=== PATIENT | male | born 1985 | race Caucasian/White ===

== ENCOUNTER 2016-09-12 03:04 | Emergency (ER) | payer SELFPAY ==
[2016-09-12 04:32] VITALS: BP 127/84
== END 2016-09-12 04:33 | disposition home or self-care (01) ==
LOC: ED 03:04
DX: F41.9 Anxiety disorder, unspecified (principal); R03.0 Elevated blood-pressure reading, without diagnosis of hypertension

== ENCOUNTER 2016-09-23 10:04 | Emergency (ER) | payer MEDICAID ==
[2016-09-23 11:50] VITALS: BP 109/65
== END 2016-09-23 11:50 | disposition home or self-care (01) ==
LOC: ED 10:04
DX: K21.9 Gastro-esophageal reflux disease without esophagitis (principal)

== ENCOUNTER 2016-10-03 16:04 | Inpatient (IN) | payer MEDICAID ==
[~2016-10-03] VITALS: Ht 167.6 cm; Wt 64.5 kg
--- NOTE | 2016-10-03 16:22 | NUR ---
PT C/O SOB AND LEFT RIB PAIN THAT BEGAN TWO DAYS AGO. PT STATES HE WAS SLEEPING IN THE FAMILY ROOM ON A COUCH DUE TO HIS GERD DX BUT RECENTLY HAD TO SLEEP IN A BED. PT STATES HE HAS NOT BEEN SLEEPING IN THE CORRECT POSITION (HOB AT 45 DEGREES) AND BELIEVES THAT MIGHT BE THE CAUSE FOR HIS PAIN AND SOB. PT IS IN SITTING UP IN BED, NO DISTRESS NOTED THIS TIME. PT WAITING TO BE SEEN BY ER MD.
--- NOTE | 2016-10-03 16:51 | NUR ---
PT PICKED UP TO BE TAKEN FOR X-RAYS.
--- NOTE | 2016-10-03 18:20 | NUR ---
MSE COMPLETED BY DR AVILES.
--- NOTE | 2016-10-03 18:20 | NUR ---
INFORMATION SERVICES CONSULTANT AT BEDSIDE.
--- NOTE | 2016-10-03 18:25 | NUR ---
EKG IN PROGRESS BY EMT.
[2016-10-03 18:38] LABS: microscopic required? NO
[2016-10-03 18:43] LABS: CALCIUM 9.6 mg/dL (8.5-10.1); CARBON DIOXIDE 27.4 mmol/L (21-32); CHLORIDE SERUM 103 mmol/L (98-107); CREATININE SERUM 1.2 mg/dL (0.7-1.3); GFR1 > 60 mL/min; GLUCOSE SERUM 88 mg/dL (74-106); POTASSIUM SERUM 3.7 mmol/L (3.5-5.1); SODIUM SERUM 140 mmol/L (136-145)
--- NOTE | 2016-10-03 18:44 | NUR ---
X-RAY AT BEDSIDE.
[2016-10-03 18:47] LABS: urine erythrocyte NEGATIVE (NEGATIVE)
[2016-10-03 18:47] LABS: ALBUMIN 4.8 g/dL (3.4-5.0); ALKALINE PHOSPHATASE 99 U/L (46-116); ALT/SGPT 21 U/L (16-63); AST/SGOT 14 U/L (15-37); BILIRUBIN TOTAL 0.7 mg/dL (0.20-1.00); LIPASE 1215 IU/L (73-393)
[2016-10-03 18:49] LABS: AMYLASE 137 U/L (25-115)
[2016-10-03 19:04] LABS: BASOPHIL % 0.8 % (0-2); PLATELET COUNT 359 x10^3mcL (130-400); RED CELL DISTRIBUTION WIDTH 12.8 % (11.5-14.5)
--- NOTE | 2016-10-03 19:18 | NUR ---
CHANGE OF SHIFT REPORT GIVEN TO MAYI GONCALVES
[2016-10-03 19:21] LABS: CK-MB < 0.5 ng/mL (0-3.6); CREATINE KINASE 91 U/L (39-308)
--- NOTE | 2016-10-03 19:24 | NUR ---
PATIENT SEEN RESTING, NO COMPLAINT. WAITING FOR RE-EVALUATION AND DISPOSTION.
[2016-10-03] MEDS ORDERED: MP PO (20:47)
--- NOTE | 2016-10-03 21:18 | NUR ---
REPORT WAS GIVEN TO VITALY. PATIENT TRANSPORTED TO ROOM 203B.
[2016-10-03 21:26] LABS: CHOLESTEROL/HDL RATIO 4.1; MAGNESIUM 1.9 mg/dL (1.8-2.4)
[2016-10-03 21:29] LABS: T3 TOTAL 1.44 ng/mL
--- NOTE | 2016-10-03 21:30 | NUR ---
RECEIVED PT FROM ED VIA [employer], CAME IN DUE TO PAIN ON THE LEFT RIB AREA/UPPER ABDOMEN. AAOX4. NO SOB NOTED. DENIES CHEST PAIN/PRESSURE, NSR ON THE MONITOR. C/O DISCOMFORT ON THE LEFT UPPER ABDOMEN WORSE ON EATING. C/O ACID REFLUX. SIDE RAILS UPX2. CALL LIGHT ON REACH. ENDORSED
--- NOTE | 2016-10-03 21:35 | NUR ---
RECEIVED PT FROM MAYI AMIN. PT AOX4. TELE # 27, SR. DENIES CP/PRESSURE. PULSES GOOD, NO EDEMA NOTED. LUNG SOUNDS CLEAR, ON RA. DENIES SOB/ DIFFICULTY BREATHING. BOWEL SOUNDS ACTIVE. VOIDS FREELY. AMBULATORY WITHOUT ASSISTANCE. SKIN INTACT. IV IN LAC, INTACT AND PATENT. BED IN LOWEST POSITION. CALL LIGHT WTIHIN REACH. WILL CONTINUE TO MONITOR.
[2016-10-03 21:37] LABS: FREE T4 1.05 ng/dL (0.76-1.46); T4(THYROXINE) 8.9 ug/dL (4.7-13.3)
--- NOTE | 2016-10-03 21:38 | NUR ---
PT TRANSFERRED TO TELE BED 203B VIA KEN WITH MYSELF, MAYI ROLLINS, AND SIGNAL CONSTRUCTOR FRANKLIN AND CODY. PT A&OX4,NO DISTRESS NOTED, RESP EVEN AND UNLABORED, AMBULATED TO TELE BED WITH STEADY GAIT. MAYI AMIN AT PT SIDE TO ASSUME CARE OF PT. PT TRANSFERRED WITHOUT INCIDENCE.
[2016-10-03 21:41] VITALS: BP 131/76
[2016-10-03 21:47] VITALS: Ht 167.6 cm; Wt 64.5 kg
[2016-10-04] LABS: AMPHETAMINE QUAL UR NONE DETECTED (NEG <=1000)
--- NOTE | 2016-10-04 01:04 | NUR ---
PT RESTING IN BED. RR EVEN AND UNLABORED. NO ACUTE DISTRESS NOTED. BED IN LOWEST POSITION. CALL LIGHT WITHIN REACH. WILL CONTINUE TO MONITOR.
[2016-10-04 03:52] LABS: PLATELET COUNT 336 x10^3mcL (130-400); RED CELL DISTRIBUTION WIDTH 11.6 % (11.5-14.5)
[2016-10-04 03:54] LABS: BASOPHIL % 8.2 % (0-2)
[2016-10-04 04:06] LABS: CALCIUM 8.3 mg/dL (8.5-10.1); CARBON DIOXIDE 25.3 mmol/L (21-32); CHLORIDE SERUM 107 mmol/L (98-107); CREATININE SERUM 1.1 mg/dL (0.7-1.3); GFR1 > 60 mL/min; GLUCOSE SERUM 83 mg/dL (74-106); MAGNESIUM 1.7 mg/dL (1.8-2.4); PHOSPHOROUS 4.1 mg/dL (2.5-4.9); POTASSIUM SERUM 3.9 mmol/L (3.5-5.1); SODIUM SERUM 140 mmol/L (136-145)
[2016-10-04 05:26] VITALS: BP 120/65
--- NOTE | 2016-10-04 07:20 | NUR ---
RECEIVED PATIENT AWAKE/ALERT NO DSITRESS NOTED, MILD PAIN TO LEFT RIB AREA. IV INTACT. POC EXPLAINED. UPDATED DIET ORDER. NEEDS ANTICIPATED.
--- NOTE | 2016-10-04 08:35 | NUR ---
PATIENT SIT UP AT SIDE OF BED, DR. RAMIREZ ROUND AND DISCUSS POC WITH PATIENT, UPDATE PATIENT'S CONDITION AND WILL DO CT ABD/PELVIS TO F/U PANCREATITIS STATUS. MD AWARE PATIENT HAS DIARRHEA, NEW ORDER FOR STOOL CULTURES. HOLD COLACE FOR DIARRHEA. SPECIMEN CUP GIVEN TO PATIENT INSTRUCT TO CALL WHEN STOOL AVAILABLE. CONT TO MONITOR.
--- NOTE | 2016-10-04 09:20 | NUR ---
PATIENT SIT IN BED TECH FROM CT GIVEN ORAL CONTRAST TO PATIENT, INSTRUCT PATIENT NOT TO EAT/DRINK FOR 2 HRS.
[2016-10-04 09:48] VITALS: BP 134/55
--- NOTE | 2016-10-04 11:43 | NUR ---
PATIENT OFF FLOOR VIA WC TO CT; STOOL SENT TO LAB FOR OP, WBCS, CX, AND OCCULT BLOOD PER MD ORDERS.
--- NOTE | 2016-10-04 12:00 | NUR ---
PATIENT BACK TO ROOM NO COMPLAINTS, CONNECT TO IV PUMP, CONT TO MONITOR.
--- NOTE | 2016-10-04 15:00 | NUR ---
PATIENT ASLEEP NO DISCOMFORT NOTED, AROUSED EASILY, REMOVED TELE BOX DOWN-GRADE TO M/S. TELE BOX RETURN TO TELE ROOM. NEEDS ANTICIPATED.
[2016-10-04 17:19] VITALS: BP 115/70
--- NOTE | 2016-10-04 17:48 | NUR ---
PATIENT SIT UP AT SIDE OF BED, MAALOX 30ML GIVEN FOR C/O GAS/HEARTBURN; MAGNESIUM SULFATE 2 GM IVPB GIVEN FOR MG 1.7; DR. MICHEL COME IN TO TALK TO PATIENT, WAS INFORM CT ABD/PEL IS UNREMARKABLE/ NO ACUTE PANCREATITIS NOTED; ADVANCED DIET TO REGULAR.
--- NOTE | 2016-10-04 19:45 | NUR ---
PT SITTING UP IN CHAIR, A/O X4. MED-SURG, NO TELE. PULSES PALPABLE, NO EDEMA NOTED. SCDs IN PLACE. CLEAR LUNG SOUNDS AUSCULTATED, BREATHING FREELY ON RA, DENIES SOB. PT REPORTS LAST WAS TODAY, [place]. ABD IS SOFT AND NONDISTENDED. DENIES ABD PAIN AT THIS TIME. DENIES PAIN UPON URINATION. PT IS AMBULATORY WITH BRP; SKIN IS INTACT. MAG INFUSING WELL TO LAC @ 25 ML/HR. PT DENIES PAIN AT THIS TIME. BED IN LOWEST SETTINGS, SIDE RAILS UP X2, CALL LIGHT PLACED BESIDE PT. WILL CONTINUE TO MONITOR.
[2016-10-04 21:31] VITALS: BP 116/60
[2016-10-05 05:49] VITALS: BP 106/58
[2016-10-05 06:29] LABS: CALCIUM 8.6 mg/dL (8.5-10.1); CARBON DIOXIDE 22.6 mmol/L (21-32); CHLORIDE SERUM 108 mmol/L (98-107); CREATININE SERUM 1.1 mg/dL (0.7-1.3); GFR1 > 60 mL/min; GLUCOSE SERUM 84 mg/dL (74-106); MAGNESIUM 2.2 mg/dL (1.8-2.4); PHOSPHOROUS 4.7 mg/dL (2.5-4.9); POTASSIUM SERUM 4.5 mmol/L (3.5-5.1); SODIUM SERUM 140 mmol/L (136-145)
--- NOTE | 2016-10-05 06:41 | NUR ---
PT SLEPT WELL THROUGHOUT THE EVENING. BREATHING EVEN AND UNLABORED, NO SIGNS OF RESPIRATORY DISTRESS OBSERVED. DENIES PAIN AT THIS TIME. ALL NEEDS MET. IVF INFUSING WELL TO LAC. WILL ENDORSE CARE TO AM NURSE.
[2016-10-05 07:30] VITALS: BP 110/66
--- NOTE | 2016-10-05 07:35 | NUR ---
PT SEEN SITTING ON BED, EATING BREAKFAST. PT NO COMPLAIN OF ABD PAIN AND NAUSEA AT THIS TIME. PT STATED TOLERATE FULL LIQUID DIET WELL TODAY. PT BREATHING ON RA, EVEN UNLABORED. IV SITE PATENT, INTACT. IVF INFUSING WELL.
[2016-10-05 09:53] VITALS: BP 109/52
[2016-10-05] MEDS ORDERED: SIMETHICONE80 MG CH (14:01)
[2016-10-05] MEDS ORDERED: PRI20 PO (14:03)
[2016-10-05 15:06] VITALS: BP 109/52
== END 2016-10-05 15:40 | disposition home or self-care (01) | DRG 282 ==
LOC: ED 16:04 → MU 20:13 → DU 20:13 → MU 10-04 11:42
PROVIDERS: Emergency Medicine; ADMIT Family Medicine
DX: K85.90 Acute pancreatitis without necrosis or infection, unspecified (principal); E87.8 Other disorders of electrolyte and fluid balance, not elsewhere classified; E78.5 Hyperlipidemia, unspecified; R00.1 Bradycardia, unspecified; F41.1 Generalized anxiety disorder; E83.42 Hypomagnesemia; K21.9 Gastro-esophageal reflux disease without esophagitis; Z68.23 Body mass index [BMI] 23.0-23.9, adult; Z87.891 Personal history of nicotine dependence
CPT/HCPCS: 83880; 84439; 87046; 87046-59; G0480; J1885; J3475; J7030; Q0092; Q9966; Q9967

== ENCOUNTER 2016-10-08 19:06 | Emergency (ER) | payer MEDICAID ==
[~2016-10-08 19:06] MED LIST: MP PO; PRI20 PO; SIMETHICONE80 MG CH
[2016-10-08 19:27] VITALS: BP 140/69
== END 2016-10-08 21:26 | disposition left against medical advice (07) ==
LOC: ED 19:06
DX: Z53.21 Procedure and treatment not carried out due to patient leaving prior to being seen by health care provider (principal)

== ENCOUNTER 2016-11-04 19:44 | Emergency (ER) | payer MEDICAID ==
[2016-11-04 21:09] LABS: BASOPHIL % 0.7 % (0-2); PLATELET COUNT 384 x10^3mcL (130-400); RED CELL DISTRIBUTION WIDTH 12.6 % (11.5-14.5)
[2016-11-04 21:24] LABS: CALCIUM 9.5 mg/dL (8.5-10.1); CARBON DIOXIDE 24.9 mmol/L (21-32); CHLORIDE SERUM 103 mmol/L (98-107); CREATININE SERUM 1.1 mg/dL (0.7-1.3); GFR1 > 60 mL/min; GLUCOSE SERUM 93 mg/dL (74-106); POTASSIUM SERUM 3.9 mmol/L (3.5-5.1); SODIUM SERUM 142 mmol/L (136-145)
[2016-11-04 21:28] LABS: ALBUMIN 4.6 g/dL (3.4-5.0); ALKALINE PHOSPHATASE 102 U/L (46-116); ALT/SGPT 24 U/L (16-63); AMYLASE 69 U/L (25-115); AST/SGOT 17 U/L (15-37); BILIRUBIN TOTAL 0.77 mg/dL (0.20-1.00); LIPASE 161 IU/L (73-393); TOTAL PROTEIN, SERUM 8.2 g/dL (6.4-8.2)
[2016-11-04 21:36] LABS: microscopic required? NO
[2016-11-04 21:43] LABS: UA SPECIFIC GRAVITY <=1.005 (1.005-1.035); urine erythrocyte NEGATIVE (NEGATIVE)
[2016-11-04 21:54] LABS: AMPHETAMINE QUAL UR NONE DETECTED (NEG <=1000)
[2016-11-04 23:20] VITALS: BP 136/76
== END 2016-11-04 23:27 | disposition home or self-care (01) ==
LOC: ED 19:44
PROVIDERS: Emergency Medicine
DX: R10.13 Epigastric pain (principal); F41.9 Anxiety disorder, unspecified; Z79.899 Other long term (current) drug therapy
CPT/HCPCS: 83880; G0480; J3490; J7030

== ENCOUNTER 2017-03-02 19:14 | Emergency (ER) | payer SELFPAY ==
[~2017-03-02] VITALS: Ht 167.6 cm; Wt 62.1 kg
[2017-03-02 19:18] VITALS: BP 121/72
== END 2017-03-02 20:38 | disposition left against medical advice (07) ==
LOC: ED 19:14
DX: Z53.21 Procedure and treatment not carried out due to patient leaving prior to being seen by health care provider (principal)

== ENCOUNTER 2017-05-06 23:52 | Emergency (ER) | payer SELFPAY ==
[~2017-05-06] VITALS: Ht 165.1 cm; Wt 60.0 kg
[2017-05-07 00:02] VITALS: Ht 165.1 cm; Wt 60.0 kg
[2017-05-07 03:50] LABS: CALCIUM 9.4 mg/dL (8.5-10.1); CARBON DIOXIDE 26.1 mmol/L (21-32); CHLORIDE SERUM 105 mmol/L (98-107); GFR1 > 60 mL/min; GLUCOSE SERUM 102 mg/dL (74-106); SODIUM SERUM 141 mmol/L (136-145)
[2017-05-07 03:54] LABS: ALBUMIN 4.5 g/dL (3.4-5.0); ALKALINE PHOSPHATASE 96 U/L (46-116); ALT/SGPT 25 U/L (16-63); AST/SGOT 19 U/L (15-37); BILIRUBIN TOTAL 0.89 mg/dL (0.20-1.00); LIPASE 170 IU/L (73-393); TOTAL PROTEIN, SERUM 7.7 g/dL (6.4-8.2)
[2017-05-07 04:41] VITALS: BP 128/72
== END 2017-05-07 04:42 | disposition home or self-care (01) ==
LOC: ED 23:52
PROVIDERS: Emergency Medicine
DX: R10.13 Epigastric pain (principal); K21.9 Gastro-esophageal reflux disease without esophagitis; Z87.19 Personal history of other diseases of the digestive system